=== PATIENT | male | born 1975 | race Caucasian/White ===

== ENCOUNTER → 2016-12-09 | Outpatient (CLI) | payer OTHER | END | disposition home or self-care (01) | LOC: CFH 07:54 | PROVIDERS: ATTEND Internal Medicine Cardiovascular Disease | DX: Z95.2 Presence of prosthetic heart valve (principal); I10 Essential (primary) hypertension; I51.7 Cardiomegaly | CPT/HCPCS: 93306 ==

== ENCOUNTER → 2018-03-19 | Outpatient (CLI) | payer OTHER | END | disposition home or self-care (01) | LOC: CFH 10:49 | PROVIDERS: ATTEND Internal Medicine Cardiovascular Disease | DX: I11.9 Hypertensive heart disease without heart failure (principal); I35.1 Nonrheumatic aortic (valve) insufficiency; Z95.2 Presence of prosthetic heart valve | CPT/HCPCS: 93306 ==

== ENCOUNTER 2018-11-05 21:58 | Observation (INO) | payer OTHER ==
[~2018-11-05] VITALS: Ht 185.4 cm; Wt 106.7 kg
[2018-11-05] MEDS ORDERED: ENAL20TA PO (22:13)
[2018-11-05] MEDS ORDERED: METO25TA35 PO (22:13)
[2018-11-05] MEDS ORDERED: OMEG1CAP23 PO (22:13)
[2018-11-05] MEDS ORDERED: WARF6TAB PO (22:13)
--- NOTE | 2018-11-05 22:19 | NUR ---
report taken from task WILIAN Franklin.
[2018-11-05 22:44] LABS: BASOPHILS # (AUTO) 0.03 x10^3/uL (0-0.1); BASOPHILS % (AUTO) 0 % (0-1); EOSINOPHILS # (AUTO) 0.05 x10^3/uL (0-0.4); EOSINOPHILS % (AUTO) 1 % (1-7); LYMPHOCYTES # (AUTO) 1.63 x10^3/uL (1-3.4); LYMPHOCYTES % (AUTO) 23 % (22-44); MD NO; MEAN CORPUSCULAR HEMOGLOBIN 32.9 pg (27.5-34.5); MEAN CORPUSCULAR HGB CONC 34.9 g/dL (33.2-36.2); MEAN CORPUSCULAR VOLUME 94.1 fL (81-97); MEAN PLATELET VOLUME 8.9 fL (7.4-10.4); MONOCYTES % (AUTO) 7 % (2-9); NEUTROPHILS # (AUTO) 4.94 x10^3/uL (1.8-6.8); NEUTROPHILS % (AUTO) 69 % (42-75); PLATELET COUNT 201 x10^3/uL (130-400); RED BLOOD COUNT 4.88 x10^6/uL (4.38-5.82); RED CELL DISTRIBUTION WIDTH 12.3 % (9.4-14.8)
--- NOTE | 2018-11-05 22:52 | NUR ---
pt resting on gurney, pt a&o, resps even and unlabored. pt denies pain. 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 awaiting lab results and dispo at this time.
[2018-11-05 22:55] LABS: ALANINE AMINOTRANSFERASE 38 U/L (12-78); ALBUMIN 3.8 g/dL (3.4-5.0); ANION GAP 5 mmol/L (5-15); CALCIUM 8.5 mg/dL (8.5-10.1); CHLORIDE 109 mmol/L (98-107); CREATININE 1.14 mg/dL (0.7-1.3)
[2018-11-05 22:59] LABS: ALKALINE PHOSPHATASE 60 U/L (45-117); BILIRUBIN,TOTAL 1.1 mg/dL (0.2-1.0); TROPONIN I < 0.015 ng/mL (0.000-0.045)
[2018-11-06 00:09] LABS: INTERNATIONAL NORMALIZED RATIO 2.1 (0.93-1.1); PROTHROMBIN TIME 21.4 Seconds (9.6-11.5)
--- NOTE | 2018-11-06 00:09 | NUR ---
PT TO BE ADMITTED TO CARDIAC TELE, PT RESTING ON GURNEY, RESPS EVEN AND UNLABORED. 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 REPORT GIVEN TO WILIAN SERRANO. Addendum: 11/06/18 at 0017 by OTTONIEL PT TO BE ADMITTED TO CARDIAC TELE, PT RESTING ON GURNEY, RESPS EVEN AND UNLABORED. 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 PT A&O, RESPS EVEN AND UNLABORED. PT DENIES PAIN. REPORT GIVEN TO WILIAN SERRANO.
[2018-11-06 01:04] VITALS: BP 134/89
[2018-11-06 01:05] LABS: TROPONIN I < 0.015 ng/mL (0.000-0.045)
[2018-11-06 03:50] LABS: TROPONIN I < 0.015 ng/mL (0.000-0.045)
[2018-11-06 06:27] LABS: TROPONIN I < 0.015 ng/mL (0.000-0.045)
[2018-11-06 06:53] LABS: ANION GAP 8 mmol/L (5-15); CALCIUM 8.4 mg/dL (8.5-10.1); CHLORIDE 110 mmol/L (98-107); CHOLESTEROL, TOTAL 185 mg/dL (140-239); TRIGLYCERIDES 258 mg/dL (50-200); VLDL CHOLESTEROL 52 mg/dL (0-25)
[2018-11-06 07:03] LABS: CHOL/HDL RATIO 5.4; HDL CHOL % 18 % (26-37); HDL CHOLESTEROL (DIRECT) 34 mg/dL (40-60); LDL CHOLESTEROL,CALCULATED 99 mg/dL (54-169); LDL/HDL RATIO 2.9 (0.5-3.0)
[2018-11-06 07:05] VITALS: BP 113/73
[2018-11-06 07:09] LABS: BASOPHILS # (AUTO) 0.03 x10^3/uL (0-0.1); BASOPHILS % (AUTO) 0 % (0-1); EOSINOPHILS # (AUTO) 0.09 x10^3/uL (0-0.4); EOSINOPHILS % (AUTO) 1 % (1-7); LYMPHOCYTES # (AUTO) 2.59 x10^3/uL (1-3.4); LYMPHOCYTES % (AUTO) 32 % (22-44); MD NO; MEAN CORPUSCULAR HEMOGLOBIN 31.9 pg (27.5-34.5); MEAN CORPUSCULAR HGB CONC 33.9 g/dL (33.2-36.2); MEAN CORPUSCULAR VOLUME 94.1 fL (81-97); MEAN PLATELET VOLUME 9.4 fL (7.4-10.4); MONOCYTES # (AUTO) 0.62 x10^3/uL (0.2-0.8); MONOCYTES % (AUTO) 8 % (2-9); NEUTROPHILS # (AUTO) 4.72 x10^3/uL (1.8-6.8); NEUTROPHILS % (AUTO) 59 % (42-75); PLATELET COUNT 213 x10^3/uL (130-400); RED BLOOD COUNT 4.92 x10^6/uL (4.38-5.82); RED CELL DISTRIBUTION WIDTH 12.3 % (9.4-14.8)
[2018-11-06] MEDS ORDERED: ENALAPRIL 20MG TABLET PO SCH (09:00)
[2018-11-06] MEDS ORDERED: WARFARIN MECH. VALVE PROTOCOL 2.5 to 3.5 XX PRN (09:00)
[2018-11-06] MEDS ORDERED: METOPROLOL TARTRATE 25 MG TABLET PO SCH (09:00)
[2018-11-06] MEDS ORDERED: TEMPLATE NON-FORMULARY MED. (Warfarin Sodium** (Coumadin**) 6 MG) PO SCH (09:00)
[2018-11-06 09:52] LABS: INTERNATIONAL NORMALIZED RATIO 2.1 (0.93-1.1); PROTHROMBIN TIME 21.4 Seconds (9.6-11.5)
[2018-11-06] MEDS ORDERED: WARFARIN HIGH DOSE PROTOCOL XX SCH (12:00)
[2018-11-06] MEDS ORDERED: ATOR40TA78 PO (13:09)
[2018-11-06] MEDS ORDERED: WARFARIN 2 MG TABLET PO-COUM ONE (18:00)
== END 2018-11-06 16:59 | disposition home or self-care (01) ==
LOC: ED 23:52 → INTOOBSV 23:57 → EDIP 23:57 → 5SO 11-06 00:50
PROVIDERS: ADMIT Family Medicine; ATTEND Family Medicine
DX: R07.89 Other chest pain (principal); I10 Essential (primary) hypertension; D68.69 Other thrombophilia; E78.5 Hyperlipidemia, unspecified; I35.9 Nonrheumatic aortic valve disorder, unspecified; Z79.01 Long term (current) use of anticoagulants; Z95.2 Presence of prosthetic heart valve; Z72.89 Other problems related to lifestyle
CPT/HCPCS: 36415; 71045; 78452; 80048; 80053; 80061; 83735; 84443; 84484; 85025; 85610; 93005; 93017; 93306; 99284; A9502; C9898; G0378

== ENCOUNTER → 2020-01-16 | Outpatient (CLI) | payer OTHER ==
[~2020-01-16] MED LIST: ATOR40TA78 PO; ENAL20TA PO; METO25TA35 PO; OMEG1CAP23 PO; WARF6TAB PO
== END | disposition home or self-care (01) ==
LOC: CFH 10:44
PROVIDERS: ATTEND Internal Medicine Cardiovascular Disease
DX: I11.9 Hypertensive heart disease without heart failure (principal)
CPT/HCPCS: 93306

== ENCOUNTER → 2020-06-29 | Outpatient (CLI) | payer OTHER ==
[~2020-06-29] MED LIST changes: -ENAL20TA PO; +ENAL20TA9 PO; +OMNIPAQUE 350 MG/ML, 100ML BOTTLE ONE
== END | disposition home or self-care (01) ==
LOC: CFH 15:28
PROVIDERS: ATTEND Internal Medicine Cardiovascular Disease
DX: I77.810 Thoracic aortic ectasia (principal)
CPT/HCPCS: 71275; Q9967